=== PATIENT | female | born 1960 | race Two or more races ===

== ENCOUNTER 2017-05-01 09:31 | Day surgery (SDC) | payer OTHER ==
[2017-05-01] VITALS (13 sets, daily range): BP systolic 124–173; BP diastolic 72–96
[~2017-05-01] VITALS: Ht 154.9 cm; Wt 80.7 kg
--- NOTE | 2017-05-01 09:43 | Emergency Room Report ---
History of Present Illness General Chief Complaint: Eye Problems Source: Patient Present Illness HPI The patient was sent for preoperative evaluation with 8 days of change in her vision of her left eye. She denies any pain at this time. She has change in her vision. There's she states there is her some problem with the retina at this time. She wears glasses. She denies trauma. She does have high blood pressure. She did not take her medications morning. She denies diabetes. She brings labs that were performed 3 weeks ago. No fevers, NVD, chest pain, cough, dysuria, rashes, headache. Allergies: Coded Allergies: No Known Allergies (Unverified , 05/01/17) Patient History Past Medical History: see triage record Social History: Denies: smoking, alcohol use, drug use Social History Narrative with family Reviewed Nursing Documentation: PMH: Agreed, PSxH: Agreed Nursing Documentation-PMH Past Medical History: No History, Except For Hx Hypertension: Yes Review of Systems All Other Systems: negative except mentioned in HPI Physical Exam Vital Signs Date Time Temp Pulse Resp B/P (MAP) Pulse Ox O2 Delivery O2 Flow Rate FiO2 05/01/17 09:34 97.5 63 16 173/92 96 Room Air Sp02 EP Interpretation: reviewed, normal General Appearance: well appearing, no apparent distress, GCS 15 Head: normocephalic Eyes: right eye other - VA 20/50, left eye visual acuity - unable to distinguish fingers at 25 feet, left eye Fundiscopic - indistinct retina - brown like color without obvious blood, bilateral eye PERRL ENT: moist mucus membranes Neck: supple Respiratory: lungs clear, normal breath sounds Cardiovascular #1: regular rate, rhythm Cardiovascular #2: 2+ radial (R) Gastrointestinal: normal inspection, normal bowel sounds, non tender, no mass, non-distended Musculoskeletal: back normal, gait/station normal, normal range of motion Neurologic: alert, oriented x3, grossly normal Psychiatric: mood/affect normal Skin: normal inspection, warm/dry Medical Decision Making Diagnostic Impression: Primary Impression: Retinal detachment Qualified Codes: H33.22 - Serous retinal detachment, left eye Additional Impression: Hypertension Qualified Codes: I10 - Essential (primary) hypertension ER Course Patient here for retinal surgery. H/O HTN. Outside labs reviewed. Need PT/PTT, type and Rh, EKG, CXR, UA. Labs unremarkable. HGB A1C 6 with normal glucose. Admitted to OR for retinal surgery Dr. Nunez. Laboratory Tests Test 05/01/17 09:45 05/01/17 09:55 Urine Color Pale yellow Urine Appearance Clear Urine pH 6 (4.5-8.0) Urine Specific [place] 1.010 (1.005-1.035) Urine Protein Negative (NEGATIVE) Urine Glucose (UA) Negative (NEGATIVE) Urine Ketones Negative (NEGATIVE) Urine Occult Blood Negative (NEGATIVE) Urine Nitrite Negative (NEGATIVE) Urine Bilirubin Negative (NEGATIVE) Urine Urobilinogen Normal MG/DL (0.0-1.0) Urine Leukocyte Esterase Negative (NEGATIVE) Prothrombin Time 10.4 SEC (9.30-11.50) Prothrombin Time INR 1.0 (0.9-1.1) PTT 26 SEC (23-33) EKG Diagnostic Results Rate: normal Rhythm: NSR ST Segments: no acute changes Rhythm Strip Diag. Results EP Interpretation: yes Rhythm: NSR, no PVC's, no ectopy Chest X-Ray Diagnostic Results Chest X-Ray Diagnostic Results : Chest X-Ray Ordered: Yes # of Views/Limited/Complete: 1 View Indication: Other Interpretation: no consolidation, no effusion, no pneumothorax, no acute cardiopulmonary disease Impression: No acute disease Electronically Signed by: Hai Mccoy MD Last Vital Signs Date Time Temp Pulse Resp B/P (MAP) Pulse Ox O2 Delivery O2 Flow Rate FiO2 05/01/17 17:20 91 21 99 05/01/17 16:40 97.9 150/79 Room Air Status: improved Disposition: PLACE IN OBSERVATION Condition: Improved Hai Mccoy M.D. May 01, 2017 09:43
[2017-05-01] MEDS ORDERED: LOSARTAN POTASS50 MG ORAL (10:09)
[2017-05-01 10:41] LABS: PROTHROMBIN TIME 10.4 SEC (9.30-11.50)
--- NOTE | 2017-05-01 11:31 | Diagnostic Imaging Report ---
Indication: Chest pain Comparison: None Findings: Single view of the chest shows a normal cardiomediastinal silhouette. Pulmonary vasculature is normal. Lung are clear. Soft tissues and osseous structures are within normal limits. Aorta appears somewhat tortuous. Impression: No acute chest disease
[2017-05-01 11:47] LABS: APPEARANCE,URINE CLEAR; KETONES,URINE NEGATIVE (NEGATIVE); LEUKOCYTE ESTERASE ,URINE NEGATIVE (NEGATIVE); NITRITE,URINE NEGATIVE (NEGATIVE); PH,URINE 6 (4.5-8.0); PROTEIN,URINE NEGATIVE (NEGATIVE); UROBILINOGEN,URINE NORMAL MG/DL (0.0-1.0)
[2017-05-01] MEDS ORDERED: LR 1000ml ONE (16:00)
[2017-05-01] MEDS ORDERED: Metoclopramide 10mg/2ml Inj ONE (16:00)
[2017-05-01] MEDS ORDERED: fentaNYL 100 mcg/2 mL IV ONE (16:00)
[2017-05-01] MEDS ORDERED: Ketorolac 30mg Inj ONE (16:00)
[2017-05-01] MEDS ORDERED: Propofol 200mg/20ml IV ONE (16:00)
[2017-05-01] MEDS ORDERED: Tropicamide 1% Opth 15ml Soln ONE (16:16)
[2017-05-01] MEDS ORDERED: BSS 500ml btl ONE (16:16)
[2017-05-01] MEDS ORDERED: Kenalog-40 1ml Vial ONE (16:16)
[2017-05-01] MEDS ORDERED: Cyclopentolate 1% Opth Sol 2ml ONE (16:16)
[2017-05-01] MEDS ORDERED: Pred Forte 1% Opth Susp 1ml ONE (16:16)
[2017-05-01] MEDS ORDERED: Tetracaine 0.5% Opth 4ml Soln ONE (16:17)
[2017-05-01] MEDS ORDERED: Maxitrol Opth Oint 3.5gm ONE (16:17)
[2017-05-01] MEDS ORDERED: Dexamethasone 4mg/ml vial ONE (16:17)
[2017-05-01] MEDS ORDERED: Lidocaine 2% MPF 5ml Vial INJ ONE (16:18)
[2017-05-01] MEDS ORDERED: EPINEPHrine 1mg/1ml Amp ONE (16:18)
[2017-05-01] MEDS ORDERED: Bupivacaine 0.75% 30ml vial INJ ONE (16:18)
[2017-05-01] MEDS ORDERED: Goniosol 2.5% Opth Soln - 15ml ONE (16:18)
[2017-05-01] MEDS ORDERED: Povidone-Iodine 5% opth solution ONE (16:18)
[2017-05-01] MEDS ORDERED: BSS 15ml BTL ONE (16:18)
[2017-05-01] MEDS ORDERED: LR 1000ml 1,000 ML IVLG SCH (17:14)
[2017-05-01] MEDS ORDERED: DiphenhydrAMINE 50mg/ml Inj IVP PRN (17:15)
[2017-05-01] MEDS ORDERED: Hydromorphone 0.5mg/0.5ml inj IVP PRN (17:15)
[2017-05-01] MEDS ORDERED: Indocyanine Green 25mg Inj INJ ONE (17:15)
[2017-05-01] MEDS ORDERED: Ketorolac 30mg Inj IV PRN (17:15)
[2017-05-01] MEDS ORDERED: fentaNYL 100 mcg/2 mL IV PRN (17:15)
[2017-05-01] MEDS ORDERED: Midazolam 2mg/2ml Inj IVP PRN (17:15)
[2017-05-01] MEDS ORDERED: Metoclopramide 10mg/2ml Inj IVP PRN (17:15)
--- NOTE | 2017-05-01 17:17 | Anethesia Preoperative Eval ---
Anesthesia Pre-op PMH/ROS General Date of Evaluation: May 01, 2017 Time of Evaluation: 16:15 Anesthesiologist: PATITO ASA Score: ASA 2 Mallampati Score Class I : Soft palate, uvula, fauces, pillars visible Class II: Soft palate, uvula, fauces visible Class III: Soft palate, base of uvula visible Class IV: Only hard plate visible Mallampati Classification: Class II Surgeon: Enrique Diagnosis: Retinal Detachment Surgical Procedure: Vitrectomy Scleral Buckle Anesthesia History: none Allergies: Coded Allergies: No Known Allergies (Unverified , 05/01/17) Medications: see eMAR Anesthesia Pre-op Phys. Exam Physician Exam Last Vital Signs Date Time Temp Pulse Resp B/P (MAP) Pulse Ox O2 Delivery O2 Flow Rate FiO2 05/01/17 16:40 97.9 62 17 150/79 100 Room Air Constitutional: NAD Neurologic: CN 2-12 intact Cardiovascular: RRR Respiratory: CTA Gastrointestinal: S/NT/ND Airway Exam Mallampati Score: Class II MO: full ROM: full Teeth: intact Anesthesia Pre-op A/P Labs Coagulation Test 05/01/17 09:55 Prothrombin Time 10.4 SEC (9.30-11.50) Prothromb Time International Ratio 1.0 (0.9-1.1) Activated Partial Thromboplast Time 26 SEC (23-33) Risk Assessment & Plan Plan: GA Pre-Antibiotics Given Within 1 Hr of Incision: Hai Rivera M.D. May 01, 2017 17:17
--- NOTE | 2017-05-01 17:19 | Immediate Post-Op Evaluation ---
Immediate Post-Op Evalulation Immediate Post-Op Evalulation Procedure: Scleral Buckle Vitrectomy Date of Evaluation: May 01, 2017 Time of Evaluation: 19:00 IV Fluids: 100 Blood Products: 0 Estimated Blood Loss: 0 Urinary Output: 0 Blood Pressure Systolic: 136 Blood Pressure Diastolic: 82 Pulse Rate: 91 Respiratory Rate: 23 O2 Sat by Pulse Oximetry: 99 Temperature (Fahrenheit): 98 Pain Score (1-10): 0 Nausea: No Vomiting: No Patient Status: awake, reacts, patent, extubated Hydration Status: adequate Given Within 1 Hr of Incision: Hai Rivera M.D. May 01, 2017 17:19
--- NOTE | 2017-05-01 17:20 | 48 Hour Post Anesthesia Eval ---
Post Anesthesia Evaluation Procedure: Scleral Buckle Vitrectomy Date of Evaluation: May 03, 2017 Time of Evaluation: 08:00 Blood Pressure Systolic: 135 0: 92 Pulse Rate: 91 Respiratory Rate: 21 Temperature (Fahrenheit): 97 O2 Sat by Pulse Oximetry: 99 Airway: patent Nausea: No Vomiting: No Hydration Status: adequate Mental Status/LOC: patient returned to baseline Follow-up care needed: patient intructions given Hai Cotter M.D. May 01, 2017 17:20
--- NOTE | 2017-05-01 19:00 | Pre-Procedure Note/Attestation ---
Pre-Procedure Note/Attestation Complete Prior to Procedure Planned Procedure: left Procedure Narrative: RRD repair Indications for Procedure Pre-Operative Diagnosis: RRD OS Attestation I attest that I discussed the nature of the procedure; its benefits; risks and complications; and alternatives (and the risks and benefits of such alternatives ), prior to the procedure, with the patient (or the patient's legal mechanical service representative). I attest that, if there was a reasonable possibility of needing a blood transfusion, the patient (or the patient's legal mechanical service representative) was given the [facility] standardized written summary, pursuant to the Jatin Karol Blood Safety Act ([place] Health and Safety Code # 1645, as amended). I attest that I re-evaluated the patient just prior to the surgery and that there has been no change in the patient's H&P, except as documented below: Markell Nunez M.D. May 01, 2017 19:00
--- NOTE | 2017-05-01 19:02 | Brief Operative Note ---
Immediate Post Operative Note Operative Note Pre-op Diagnosis: RRD, macular hole OS Procedure: SB/PPV/RTO/ILMP/AFE/EL/C3F8 (10%) OS Post-op Diagnosis: Same Surgeon: Enrique Anesthesia: general Specimen: none Complications: none Condition: stable Fluids: min Estimated Blood Loss: minimal Drains: none Implant(s) used?: Yes - Markell Huertas M.D. May 01, 2017 19:02
--- NOTE | 2017-05-01 19:03 | Operative Note - PDOC ---
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 Anesthesia: General anesthesia Complications: None Indications for the procedure: The patient has vision loss due to retinal detachment and presents for surgery after review of the risks, benefits, alternative and signing informed consent into the medical chart. Description of Procedure Procedure performed: The patient was met in the pre-op area where informed consent was reviewed. The operative eye was verified, marked and dilated. The patient was transferred to the operative suite, where cardiopulmonary monitoring was established and general anesthesia was administered without complications. The eye was prepped and draped in sterile ophthalmic fashion. A lid speculum was placed. Under direct visualization, the conjunctiva was opened and the quadrants were dissected. The rectus muscles were isolated and hooked with silk sutures. The quadrants were inspected and no scleral defects were noted. The 41 band was encircled around the globe with its ends attached in the superonasal quadrant with the 72 sleeve. The buckle was sutured to the sclera with 5-0 nylon sutures at 4mm posterior to the muscle insertions in all 4 quadrants. The buckle was pulled flush against the globe, then 8mm beyond flush. The anterior chamber was tapped to reduce the intraocular pressure. The buckle ends were trimmed. Under microscope visualization, the 23 gauge infusion line was placed 4 millimeters inferotemporally. After visualization of the tip in the vitreous cavity, the infusion line was turned on. The superotemporal and superonasal cannulas were placed. Under ReSight visualization, peripheral and core vitrectomy was performed. The cornea was edematous and the epithelium was removed to improve visualization. As the vitreous was removed and retinal traction was released, the retina started to relax. Meticulous vitrectomy was performed up to the edges of the large multiple retinal tears superiorly. As the vitreous was trimmed from the tears, the retina relaxed and flattened further. Peripheral shaving along the areas of lattice elsewhere were performed and inferior vitreous hemorrhage was removed as well.. A posterior drainage retinotomy was created as the macula hole was not sufficient to drain. Subretinal fluid was removed from the retinotomy and air-fluid exchange was performed. ICG was used to peel the ILM around the macular hole. Endolaser was applied to all retinal tears, the retinotomy and along the shelf of the buckle indentation. Infusion of C3F8 was performed. The cannulas and infusion line were removed and sutured with 7-0 vicryl sutures. The eye maintained normal intraocular pressure. The stay sutures were removed, the conjunctiva was repositioned and closed with 5-0 plain gut sutures. Subconjunctival vancomycin and dexamethasone were administered. The lid speculum was removed. The eye was cleaned of prep and drape. Atropine drop and Maxitrol ointment was applied. A pressure patch was placed. The patient was turned over to the anesthesia team, extubated and transferred in stable condition to the PACU. Markell Nunez M.D. May 01, 2017 19:03
[2017-05-01] MEDS ORDERED: Ketorolac 30mg Inj IV ONE (19:30)
[2017-05-01] MEDS ORDERED: acetaZOLAMIDE 500mg Sequel ORAL ONE (19:30)
[2017-05-01] MEDS ORDERED: Norco 5mg/325mg tab ORAL ONE (19:30)
--- NOTE | 2017-05-09 15:57 | Cardiology Report ---
APPROVED REPORT EKG Measurement Heart [id number] Sinus bradycardia Minimal voltage criteria for LVH, may be normal variant Nonspecific T wave abnormality Abnormal ECG
== END 2017-05-01 20:45 | disposition home or self-care (01) ==
LOC: EMR 09:49 → SUR 09:49 → EMR 09:49 → EDBEDREQ 10:10 → SUR 16:25
DX: H33.002 Unspecified retinal detachment with retinal break, left eye (principal); H35.342 Macular cyst, hole, or pseudohole, left eye; I10 Essential (primary) hypertension
CPT/HCPCS: 36415; 67042; 67108; 71010; 81003; 85610; 85730; 86900; 86901; 93005; 99285; J0690; J1100; J1885; J2250; J2405; J2704; J2765; J3010; J3370; J3490; J7120; Z7512; 94003; 94150